=== PATIENT | female | born 1995 | race Two or more races ===

== ENCOUNTER 2019-02-26 08:53 | Emergency (ER) | payer BC ==
[2019-02-26 09:01] VITALS: BP 143/90; PULSE 92; TEMP 98.9; BMI 35.4
[2019-02-26] MEDS ORDERED: IBUPROFEN 600 MG TABLET (FP) PO ONE ×2 (09:41→09:43)
--- NOTE | 2019-02-26 09:50 | PDOC ---
History of Present Illness - General Chief Complaint: Abscess Boil Stated Complaint: R/O RT KNEE INFECTION Time Seen by Provider: 02/26/19 09:32 History Source: Patient Exam Limitations: No Limitations - History of Present Illness Initial Comments: 02/26/19 09:45 23 year old female with no significant medical and surgical history of appendectomy presents with reports of abscess to right lower leg x 1 week. Patient reports small red lesion is now bigger, red, painful and draining pus. Denies fever or chills. Timing/Duration: reports: week Severity: Yes: moderate Location: reports: extremities Respiratory Risk Factors: reports: no cause identified Associated Symptoms: reports: denies symptoms Past History - Travel Traveled outside of the country in the last 30 days: No Close contact w/someone who was outside of country & ill: No - Past Medical History Allergies/Adverse Reactions: Allergies Allergy/AdvReac Type Severity Reaction Status Date / Time No Known Allergies Allergy Verified 02/26/19 08:57 Home Medications: Ambulatory Orders Cephalexin [Keflex] 500 mg PO BID #14 capsule 02/26/19 Sulfamethoxazole/Trimethoprim [Bactrim Ds -] 1 tab PO BID #20 tablet 02/26/19 COPD: No - Surgical History Appendectomy: Yes - Immunization History Immunization Up to Date: Yes - Psycho Social/Smoking Cessation Hx Smoking History: Never smoked Hx Alcohol Use: No Drug/Substance Use Hx: No Review of Systems - Review of Systems Able to Perform ROS?: Yes Is the patient limited Telugu proficient: No Constitutional: No: Chills, Fever, Weakness HEENTM: No: Nose Pain, Nose Congestion, Throat Swelling Respiratory: No: See HPI, Shortness of Breath, Stridor, Wheezing Cardiac (ROS): No: Lightheadedness ABD/GI: No: Blood Streaked Bowels, Poor Appetite, Poor Fluid Intake, Abdominal cramping Musculoskeletal: No: Back Pain, Muscle Pain, Muscle Weakness Integumentary: Yes: Erythema, Lesions Neurological: No: Tingling, Tremors Psychiatric: No: Emotional Problems Endocrine: No: See HPI, Excessive Sweating, Unexplained Weight Gain, Change in Weight Hematologic/Lymphatic: No: Blood Clots *Physical Exam - Vital Signs Last Vital Signs Temp Pulse Resp BP Pulse Ox 98.9 F 92 H 17 143/90 99 02/26/19 08:58 02/26/19 08:58 02/26/19 08:58 02/26/19 08:58 02/26/19 08:58 - Physical Exam General Appearance: Yes: Nourished, Appropriately Dressed HEENT: positive: TMs Normal, Pharynx Normal Neck: positive: Supple. negative: Lymphadenopathy (R), Lymphadenopathy (L) Respiratory/Chest: positive: Lungs Clear Cardiovascular: positive: Regular Rate Extremity: positive: Normal Capillary Refill, Erythema, Other (+abscess to right below right knee posteriorly, erythematous draining pus, + induration) Neurologic: positive: Fully Oriented, Alert Medical Decision Making - Medical Decision Making 02/26/19 09:52 23 year old female with no significant medical and surgical history of appendectomy presents with reports of abscess to right lower leg x 1 week. Patient reports small red lesion is now bigger, red, painful and draining pus. abscess -woound culture; area cleansed, lesion open and draining -analgesia -rx: bactrim and keflex Discharge - Discharge Information Problems reviewed: Yes Clinical Impression/Diagnosis: Abscess Condition: Good Disposition: HOME - Admission No - Additional Discharge Information Prescriptions: Cephalexin [Keflex] 500 mg PO BID #14 capsule Sulfamethoxazole/Trimethoprim [Bactrim Ds -] 1 tab PO BID #20 tablet - Follow up/Referral - Patient Discharge Instructions Patient Printed Discharge Instructions: DI for Incision and Drainage of a Skin Abscess Additional Instructions: -Please apply warm compress to area for 20 to 30 minutes 3 times daily -Take antibiotics until completed -If area becomes more red, u develop fever, return to ed - Post Discharge Activity Work/Back to School Note: Back to Work
--- NOTE | 2019-02-27 10:27 | PDOC ---
Patient Follow-up (Call Back) - Post ED Follow - Up Condition at time of discharge: Good Disposition at time of original discharge: HOME Reason for Call Back: Abnwl. Microbiology (presumptive mrsa. treated with bactrim.)
== END 2019-02-26 10:11 | disposition home or self-care (01) ==
LOC: JERFT 08:53
DX: L02.415 Cutaneous abscess of right lower limb (principal)
CPT/HCPCS: 84703; 87070; 87186; 87205; 99282-25